=== PATIENT | male | born 2000 | race Native Hawaiian/Other Pacific Islander ===

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

== ENCOUNTER 2023-08-24 16:12 | Emergency (ER) | payer OTHER ==
[~2023-08-24] VITALS: Ht 185.4 cm; Wt 60.3 kg
[~2023-08-24 16:12] MED LIST: ONDA4TAB3 PO
[2023-08-24 16:18] VITALS: BP 126/76; TEMP 97.8
== END 2023-08-24 18:06 | disposition home or self-care (01) ==
LOC: ED 16:12
DX: M79.672 Pain in left foot (principal); L60.0 Ingrowing nail; M79.675 Pain in left toe(s)
CPT/HCPCS: 99282